=== PATIENT | female | born 2000 | race Caucasian/White ===

== ENCOUNTER 2019-08-17 09:19 | Emergency (ER) | payer OTHER ==
[2019-08-17 09:30] VITALS: TEMP 98.6; BMI 17.9
[2019-08-17] MEDS ORDERED: FAMOTIDINE 20 MG/50 ML IVPB 20 MG/50 ML MG IVPB ONE ×2 (09:36→09:53)
[2019-08-17] MEDS ORDERED: DICYCLOMINE HCL 20 MG TABLET PO ONE (09:36)
--- NOTE | 2019-08-17 09:44 | PDOC ---
History of Present Illness - General History Source: Patient, Family Exam Limitations: No Limitations - History of Present Illness Initial Comments: 08/17/19 09:40 Patient is a 19-year-old female who is primarily [place]-speaking and is here with a family member who is translating for her, who presents to the ED with complaint of mid abdominal pain that she has had since 4 AM. The patient states that she is currently on her menstrual cycle. She typically does not get pain like this during her menses. She denies any nausea or vomiting. She denies any foods that could have made her sick. She had a bowel movement yesterday but it was small and very hard. She typically is constipated and does not have normal bowel movements. The patient denies any past medical history or allergies to medications. She denies any dark or bloody stools. She states her menstrual flow was normal. She has not taken anything for her pain. The patient denies any dysuria, frequency or urgency. <Leonila Carnes - Last Filed: 08/17/19 12:51> <Segun Landeros - Last Filed: 08/17/19 17:14> - General Chief Complaint: Pain, Acute Stated Complaint: ABD PAIN Time Seen by Provider: 08/17/19 09:30 Past History - Past Medical History COPD: No - Immunization History Immunization Up to Date: No - Psycho Social/Smoking Cessation Hx Smoking History: Never smoked Have you smoked in the past 12 months: No Information on smoking cessation initiated: No Hx Alcohol Use: No Drug/Substance Use Hx: No <Leonila Carnes - Last Filed: 08/17/19 12:51> <Segun Landeros - Last Filed: 08/17/19 17:14> - Past Medical History Allergies/Adverse Reactions: Allergies Allergy/AdvReac Type Severity Reaction Status Date / Time No Known Allergies Allergy Verified 08/17/19 09:29 Home Medications: Ambulatory Orders NK [No Known Home Medication] 08/17/19 Review of Systems - Review of Systems Comments:: 08/17/19 09:41 - Review of Systems Able to Perform ROS?: Yes Constitutional: No: Fever, Chills, Loss of Appetite, Night Sweats, Weakness HEENTM: No: Eye Pain, Vision changes, Ear Pain, Throat Pain, Throat Swelling, Mouth Pain, Difficulty Swallowing Respiratory: No: Cough, Shortness of Breath, Wheezing, Sputum Production Cardiac (ROS): No: Chest Pain, Chest Tightness, Palpitations, Irregular Heart Beat, Edema ABD/GI: No: Nausea, Vomiting, Diarrhea; + mid abdominal pain, + constipation : No Dysuria, No Hematuria, No Frequency, No Urgency, No Vaginal Discharge/ Pain; + currently on her menstrual cycle Musculoskeletal: No: Muscle Pain, Back Pain, Joint Pain, Muscle Weakness, Neck Pain Integumentary: No: Lesions, Rash Neurological: No: Headache, Numbness, Tingling, Weakness, Speech Difficulties <Leonila Carnes D - Last Filed: 08/17/19 12:51> *Physical Exam - Vital Signs Last Vital Signs Temp Pulse Resp BP Pulse Ox 98.6 F 89 18 115/61 99 08/17/19 09:27 08/17/19 09:27 08/17/19 09:27 08/17/19 09:27 08/17/19 09:27 - Physical Exam 08/17/19 09:42 - Physical Exam General Appearance: Nourished, Appropriately Dressed, No Distress HEENT: EOMI, Normal Voice, No Muffled/Hoarse voice, Hearing Grossly Normal Neck: Supple, No Lymphadenopathy (R), No Lymphadenopathy (L), No Rigidity, No Decreased range of motion Respiratory/Chest: Lungs Clear, Normal Breath Sounds. No Respiratory Distress, No Accessory Muscle Use Cardiovascular: Regular Rhythm, Regular Rate, S1, S2 Gastrointestinal/Abdominal: Normal Bowel Sounds, Soft. + diffuse mid abdominal and epigastric abdominal tenderness to palpation, no rebound, no rigidity, + voluntary guarding appreciated, no cva tenderness b/l Musculoskeletal: Normal Inspection. No Decreased Range of Motion Extremity: Normal Capillary Refill, Normal Inspection Integumentary: Normal Color, Dry. No Rash Neurologic: soil engineer II-XII NML intact, Fully Oriented, Alert, Normal Mood/Affect, Normal Response <Arsh Carnesica D - Last Filed: 08/17/19 12:51> - Vital Signs Last Vital Signs Temp Pulse Resp BP Pulse Ox 98.6 F 65 18 113/69 100 08/17/19 09:27 08/17/19 13:07 08/17/19 13:07 08/17/19 13:07 08/17/19 13:07 <Segun Landeros - Last Filed: 08/17/19 17:14> ED Treatment Course - LABORATORY CBC & Chemistry Diagram: 08/17/19 10:00 08/17/19 10:00 - ADDITIONAL ORDERS Additional order review: 08/17/19 11:21 Laboratory Tests 08/17/19 08/17/19 10:00 10:00 Urine Color Yellow Urine Appearance Clear Urine pH 6.5 Ur Specific Tad 1.026 Urine Protein Negative Urine Glucose (UA) Negative Urine Ketones Negative Urine Blood 3+ H Urine Nitrite Negative Urine Bilirubin Negative Urine Urobilinogen 1.0 Ur Leukocyte Esterase Negative Urine WBC (Auto) 4 Urine RBC (Auto) 1 Urine Casts (Auto) 4 U Epithel Cells (Auto) 4.5 Urine Bacteria (Auto) 108.6 Urine HCG, Qual Negative <DeyviLeonila D - Last Filed: 08/17/19 12:51> - LABORATORY CBC & Chemistry Diagram: 08/17/19 10:00 08/17/19 10:00 - ADDITIONAL ORDERS Additional order review: Laboratory Results 08/17/19 08/17/19 08/17/19 10:00 10:00 10:00 Sodium Potassium Chloride Carbon Dioxide Anion Gap BUN Creatinine Est GFR (CKD-EPI)AfAm Est GFR (CKD-EPI)NonAf Random Glucose Calcium Total Bilirubin AST ALT Alkaline Phosphatase Total Protein Albumin Lipase 89 Urine Color Yellow Urine Appearance Clear Urine pH 6.5 Ur Specific Tad 1.026 Urine Protein Negative Urine Glucose (UA) Negative Urine Ketones Negative Urine Blood 3+ H Urine Nitrite Negative Urine Bilirubin Negative Urine Urobilinogen 1.0 Ur Leukocyte Esterase Negative Urine WBC (Auto) 4 Urine RBC (Auto) 1 Urine Casts (Auto) 4 U Epithel Cells (Auto) 4.5 Urine Bacteria (Auto) 108.6 Urine HCG, Qual Negative 08/17/19 10:00 Sodium 138 Potassium 3.6 Chloride 108 H Carbon Dioxide 24 Anion Gap 6 L BUN 13.4 Creatinine 0.7 Est GFR (CKD-EPI)AfAm 144.56 Est GFR (CKD-EPI)NonAf 124.72 Random Glucose 85 Calcium 8.6 Total Bilirubin 0.4 AST 12 L ALT 17 Alkaline Phosphatase 68 Total Protein 7.4 Albumin 3.8 Lipase Urine Color Urine Appearance Urine pH Ur Specific Tad Urine Protein Urine Glucose (UA) Urine Ketones Urine Blood Urine Nitrite Urine Bilirubin Urine Urobilinogen Ur Leukocyte Esterase Urine WBC (Auto) Urine RBC (Auto) Urine Casts (Auto) U Epithel Cells (Auto) Urine Bacteria (Auto) Urine HCG, Qual 08/17/19 10:00 RBC 4.15 MCV 94.2 MCHC 32.9 RDW 13.4 MPV 9.8 Neutrophils % 83.6 H Lymphocytes % 12.4 Monocytes % 3.8 Eosinophils % 0.1 Basophils % 0.1 - Medications Given in the ED: ED Medications Discontinued Medications Generic Name Dose Route Start Last Admin Trade Name Inge PRN Reason Stop Dose Admin Dicyclomine HCl 20 mg 08/17/19 09:36 08/17/19 10:05 Bentyl - PO 08/17/19 09:37 20 mg ONCE ONE Administration Famotidine/Sodium Chloride 20 mg in 50 mls @ 100 mls/hr 08/17/19 09:36 10:05 Pepcid 20 Mg Premixed Ivpb - IVPB 08/17/19 10:05 100 mls/hr ONCE ONE Administration <Segun Landeros - Last Filed: 08/17/19 17:14> Medical Decision Making - Medical Decision Making 08/17/19 09:43 Patient is a 19-year-old female with mid abdominal pain and currently on her menstrual cycle. -We will get labs for further evaluation -Pepjuliod Bentyl -Abdominal x-ray if hCG negative -Will reassess 08/17/19 11:15 Spoke with the lab and they have given me a result of a negative test. The patient is feeling better than she did when she first got to the ED. We will order an abd xray for further evaluation of constipation. 08/17/19 12:51 The patient's x-ray is read as negative for acute pathology. She states she feels much better and would like to go home. She has been advised to follow-up with her primary doctor within 1 to 2 days for repeat evaluation. She understands and agrees with treatment plan and the patient stable for discharge. <Leonila Carnes - Last Filed: 08/17/19 12:51> - Medical Decision Making 08/17/19 17:14I reviewed the case of the mid-level practitioner and was available for consultation while in the emergency department <Segun Landeros - Last Filed: 08/17/19 17:14> Discharge - Discharge Information Problems reviewed: Yes <Leonila Carnes - Last Filed: 08/17/19 12:51> <Segun Landeros - Last Filed: 08/17/19 17:14> - Discharge Information Clinical Impression/Diagnosis: Abdominal pain Qualifiers: Abdominal location: generalized Qualified Code(s): R10.84 - Generalized abdominal pain Condition: Stable Disposition: HOME - Follow up/Referral Referrals: ON STAFF,NOT [Primary Care Provider] - CallBack Reminder: f/u urine culture - Patient Discharge Instructions Patient Printed Discharge Instructions: DI for Abdominal Pain-Adult Additional Instructions: Get plenty of rest and drink plenty of fluids. Take Tylenol or ibuprofen for pain. Follow-up with your primary doctor within 1 to 2 days for repeat evaluation.
[2019-08-17] MEDS ORDERED: DICYCLOMINE HCL 10 MG CAPSULE ONE (09:53)
[2019-08-17 10:23] LABS: BASO % 0.1 % (0-2.0); EOS % 0.1 % (0-4.5); HEMATOCRIT 39.1 % (32.4-45.2); HEMOGLOBIN 12.8 GM/dL (10.7-15.3); LYMPH % 12.4 % (8-40); MCHC 32.9 g/dl (32.0-36.0); MEAN CELL VOLUME 94.2 fl (80-96); MEAN PLT VOLUME 9.8 fl (7.5-11.1); MONO % 3.8 % (3.8-10.2); NEUT % 83.6 % (42.8-82.8); PLATELET COUNT 233 K/MM3 (134-434); RBC 4.15 M/mm3 (3.60-5.2); RDW 13.4 % (11.6-15.6); WHITE BLOOD COUNT 14.4 K/mm3 (4.0-10.0)
[2019-08-17 10:48] LABS: ALBUMIN 3.8 g/dl (3.4-5.0); BILIRUBIN,TOTAL 0.4 mg/dL (0.2-1); BLOOD UREA NITROGEN 13.4 mg/dL (7-18); CALCIUM 8.6 mg/dL (8.5-10.1); CREATININE 0.7 mg/dL (0.55-1.3); POTASSIUM 3.6 mmol/L (3.5-5.1); TOT PROT 7.4 g/dl (6.4-8.2)
[2019-08-17 10:51] LABS: EPI CELLS 4.5 /HPF (0-5/HPF); HYALINE CASTS 4 /lpf (0-8); PH,URINE 6.5 (5.0-8.0); URINE APPEARANCE CLEAR; URINE BACTERIA 108.6 /hpf (NEGATIVE); URINE BILIRUBIN NEGATIVE (NEGATIVE); URINE COLOR YELLOW; URINE GLUCOSE (UA) NEGATIVE (NEGATIVE); URINE KETONE NEGATIVE (NEGATIVE); URINE LEUK ESTERASE NEGATIVE (NEGATIVE); URINE NITRITE NEGATIVE (NEGATIVE); URINE PROTEIN NEGATIVE (NEGATIVE); URINE RBC 1 /hpf (0-4); URINE WBC 4 /hpf (0-5)
[2019-08-17 13:08] VITALS: BP 113/69; PULSE 65
== END 2019-08-17 13:07 | disposition home or self-care (01) ==
LOC: JER 09:19
PROC: 3E033GC Introduction of Other Therapeutic Substance into Peripheral Vein, Percutaneous Approach (ICD-10-PCS; principal; 2019-08-17)
DX: R10.84 Generalized abdominal pain (principal)
CPT/HCPCS: 36415; 74019-TC-FY; 80053; 81003; 83690; 84703; 85025; 96365; 99282-25